=== PATIENT | female | born 1980 | race Caucasian/White ===

== ENCOUNTER 2019-04-02 18:47 | Emergency (ER) | payer MEDICAID ==
--- NOTE | 2019-04-02 19:17 | EDM.PDOC ---
ED HPI GENERAL MEDICAL PROBLEM - General Chief Complaint: ENT Problem Stated Complaint: Q TIP IN R EAR Time Seen by Provider: 04/02/19 19:14 Source of Information: Reports: Patient History Limitations: Reports: No Limitations - History of Present Illness INITIAL COMMENTS - FREE TEXT/NARRATIVE: 38-year-old female who was cleaning out her ears with Q-tips and while cleaning out her right ear canal she got the cotton from the tip of a "Q-tip" lodged in the right ear canal. There is really no pain associated with it. She does report that there is a mild discomfort. She also reports decreased hearing. There is been no bleeding from that ear canal. This occurred approximately 5 to 6PM tonight. She reports she was unable to get the cotton out of the ear herself and she presents here for evaluation. She has had no antecedent symptoms. No nausea. No vomiting. No nasal congestion. No sore throat. No fever. There are no other associated signs or symptoms. There are no other modifying factors. 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: Other (see below) (Nothing) - Related Data Allergies Allergy/AdvReac Type Severity Reaction Status Date / Time bee venom protein (honey bee) Allergy Anaphylactic Verified 04/02/19 18:56 Shock codeine Allergy Vomiting Verified 04/02/19 18:56 metformin Allergy Other Verified 04/02/19 18:56 quetiapine [From Seroquel] Allergy Vomiting Verified 04/02/19 18:56 Home Meds: Home Meds Escitalopram Oxalate 10 mg PO DAILY 04/02/19 [History] Fluticasone Propionate [Flonase] 2 sprays INH DAILY 04/02/19 [History] Gabapentin [Neurontin] 300 mg PO DAILY 04/02/19 [History] Pantoprazole Sodium 40 mg PO DAILY 04/02/19 [History] ondansetron HCL [Ondansetron HCl] 4 mg PO Q6H PRN 04/02/19 [History] Past Medical History Psychiatric History: Reports: OCD, Other (See Below) (Borderline personality disorder) - Past Surgical History GI Surgical History: Reports: Bariatric Procedure (Gastric bypass surgery) Social & Family History - Tobacco Use Smoking Status *Q: Never Smoker - Alcohol Use Alcohol Use History: No - Living Situation & Occupation Living situation: Reports: with Significant Other ED ROS ENT - Review of Systems Review Of Systems: See Below Constitutional: Reports: No Symptoms HEENT: Reports: Ear Pain (Discomfort from foreign body), Other (Foreign body in right ear canal) Respiratory: Reports: No Symptoms Cardiovascular: Reports: No Symptoms Endocrine: Reports: No Symptoms GI/Abdominal: Reports: No Symptoms : Reports: No Symptoms Musculoskeletal: Reports: No Symptoms Skin: Reports: No Symptoms Neurological: Reports: No Symptoms Hematologic/Lymphatic: Reports: No Symptoms Immunologic: Reports: No Symptoms ED EXAM, ENT - Physical Exam Exam: See Below Exam Limited By: No Limitations General Appearance: Alert, WD/WN, No Apparent Distress Eye Exam: Bilateral Eye: EOMI, Normal Inspection Ears: Normal External Exam, Canal Foreign Body (Appears to be cotton lodged in the right ear canal), Other (Left ear canal and tympanic membrane are clear.) Nose: Normal Inspection Mouth/Throat: Normal Inspection Head: Atraumatic, Normocephalic Neck: Normal Inspection, Supple, Non-Tender, Full Range of Motion Respiratory/Chest: No Respiratory Distress, Lungs Clear, Normal Breath Sounds, No Accessory Muscle Use, Chest Non-Tender Cardiovascular: Normal Peripheral Pulses, Regular Rate, Rhythm, No JVD GI/Abdominal: Normal Bowel Sounds, Soft, No Mass Back: Normal Inspection Extremities: Normal Inspection, Normal Range of Motion, Normal Capillary Refill Neurological: Alert, Oriented, CN II-XII Intact, Normal Cognition, No Motor/ Sensory Deficits Skin: Warm, Dry, Intact, Normal Color, No Rash ED ENT PROCEDURES - Foreign Body Removal Consent Obtained: Patient Performing Doctor:: Ruddy Dumont Foreign Body Other Location Comment:: Right ear canal Anesthesia Type: None Findings: There was cotton lodged in the right ear canal. This was atraumatically removed using alligator forceps. The patient tolerated this procedure well. There were no apparent complications. Exam of the patient's right ear canal and tympanic membrane showed a normal right ear canal and a normal right tympanic membrane. Complications: No Course - Vital Signs Last Recorded V/S: Last Vital Signs Temp 36.6 C 04/02/19 19:05 Pulse 76 04/02/19 19:05 Resp 18 04/02/19 19:05 BP 148/100 H 04/02/19 19:05 Pulse Ox 100 04/02/19 19:05 - Re-Assessments/Exams Free Text/Narrative Re-Assessment/Exam: 04/02/19 19:30: I advised the patient not to use Q-tips or place anything in her ear canal in the future. Departure - Departure Time of Disposition: 19:40 Disposition: Home, Self-Care 01 Condition: Good (Improved) Clinical Impression: Foreign body in ear Qualifiers: Encounter type: initial encounter Laterality: right Qualified Code(s): T16.1XXA - Foreign body in right ear, initial encounter - Discharge Information Instructions: Ear Foreign Body, [id number] Referrals: Woody Phoenix PA [Primary Care Provider] - Forms: ED Department Discharge Additional Instructions: The foreign body (cotton) was completely removed from your right ear canal. There did not appear to be any damage to your ear canal or to your eardrum. In the future, you should not place anything in your ear canal. There is an ear wax removal kit that is available at most department stores and drugstores that you could use to clean your ears out as needed. Back to the emergency department for bleeding from the ear or any other concerning sign or symptom. Sepsis Event Note - Focused Exam Vital Signs: Vital Signs Temp Pulse Resp BP Pulse Ox 04/02/19 19:05 36.6 C 76 18 148/100 H 100 Date Exam was Performed: 04/02/19 Time Exam was Performed: 19:29
== END 2019-04-02 19:45 | disposition home or self-care (01) ==
LOC: FB.ED 18:47
DX: T16.1XXA Foreign body in right ear, initial encounter (principal)
CPT/HCPCS: 69200; 99282-25

== ENCOUNTER 2019-05-07 15:40 | Emergency (ER) | payer OTHER, MEDICAID ==
[2019-05-07] MEDS ORDERED: Acetaminophen 500 MG Tab PO ONE (16:28)
[2019-05-07] MEDS ORDERED: Ibuprofen 800 MG Tab PO ONE (16:28)
[2019-05-07] MEDS ORDERED: Ondansetron 4 MG Tab.DIS PO ONE (16:28)
[2019-05-07] MEDS ORDERED: LORazepam 1 MG Tab PO ONE (16:28)
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
[2019-05-07] MEDS ORDERED: Sodium Chloride 0.9% 10 ML Syringe FLUSH PRN (19:48)
[2019-05-07] MEDS ORDERED: Sodium Chloride 0.9% 1,000 ML IV SCH (20:00)
== END 2019-05-07 18:50 | disposition home or self-care (01) ==
LOC: FB.ED 15:40
DX: S33.5XXA Sprain of ligaments of lumbar spine, initial encounter (principal); S13.4XXA Sprain of ligaments of cervical spine, initial encounter; Z88.5 Allergy status to narcotic agent; Z88.8 Allergy status to other drugs, medicaments and biological substances; Z91.030 Bee allergy status; V89.2XXA Person injured in unspecified motor-vehicle accident, traffic, initial encounter
CPT/HCPCS: 72125; 72131; 81025; 99284; A9270

== ENCOUNTER 2020-11-23 20:21 | Emergency (ER) | payer MEDICAID ==
--- NOTE | 2020-11-23 20:43 | EDM.PDOC ---
ED HPI GENERAL MEDICAL PROBLEM - General Stated Complaint: TOOTH INFECTION Time Seen by Provider: 11/23/20 20:25 Source of Information: Reports: Patient History Limitations: Reports: No Limitations - History of Present Illness INITIAL COMMENTS - FREE TEXT/NARRATIVE: pt c/o tooth pain x 2 days and worried she has an abscess , denies fever chills or any other associated sx or concerns. - Related Data Allergies Allergy/AdvReac Type Severity Reaction Status Date / Time bee venom protein (honey bee) Allergy Anaphylactic Verified 05/07/19 17:58 Shock codeine Allergy Vomiting Verified 05/07/19 17:58 metformin Allergy Other Verified 05/07/19 17:58 quetiapine [From Seroquel] Allergy Vomiting Verified 05/07/19 17:58 Home Meds: Home Meds . [Unable to Verify Home Med List] 05/07/19 [History] Past Medical History Respiratory History: Reports: None Genitourinary History: Reports: None CUSTOMER SUPPORT COORDINATOR History: Reports: Polycystic Ovaries Psychiatric History: Reports: OCD, Other (See Below) (Borderline personality disorder) Endocrine/Metabolic History: Reports: Vitamin D Deficiency Hematologic History: Reports: B12 Deficiency, Iron Deficiency - Past Surgical History GI Surgical History: Reports: Bariatric Procedure (Gastric bypass surgery) Social & Family History - Family History Family Medical History: No Pertinent Family History - Caffeine Use Caffeine Use: Reports: None - Living Situation & Occupation Living situation: Reports: with Significant Other ED ROS GENERAL - Review of Systems Review Of Systems: See Below Constitutional: Reports: No Symptoms Respiratory: Reports: No Symptoms Cardiovascular: Reports: No Symptoms GI/Abdominal: Reports: No Symptoms ED EXAM, GENERAL - Physical Exam Exam: See Below Exam Limited By: No Limitations General Appearance: Alert, No Apparent Distress Ears: Normal TMs Nose: Normal Inspection Throat/Mouth: Normal Inspection, Normal Oropharynx, Other (tender over the right lower decaed molars , no papable abscess . ) Head: Atraumatic, Normocephalic, Other (no facial swelling or asymetry . ) Neck: Normal Inspection, Supple Respiratory/Chest: No Respiratory Distress, Lungs Clear Cardiovascular: Normal Peripheral Pulses, Regular Rate, Rhythm GI/Abdominal: Normal Bowel Sounds, Soft Course - Vital Signs Text/Narrative:: pt has dental infection, was given Augmentin and hydrocodone. , she is to follow with her dentist. Departure - Departure Time of Disposition: 20:46 Disposition: Home, Self-Care 01 Clinical Impression: Dental infection - Discharge Information Referrals: Woody Phoenix PA [Primary Care Provider] -
[2020-11-23] MEDS ORDERED: Amoxicillin/Clavulanate K 875-125 MG Tab PO ONE (20:54)
[2020-11-23] MEDS ORDERED: Acetaminophen/HYDROcodone 325-5 MG Tab PO ONE (20:55)
== END 2020-11-23 21:15 | disposition home or self-care (01) ==
LOC: FB.ED 20:21
DX: K04.7 Periapical abscess without sinus (principal); K02.9 Dental caries, unspecified; Z91.030 Bee allergy status; Z88.5 Allergy status to narcotic agent; Z88.8 Allergy status to other drugs, medicaments and biological substances
CPT/HCPCS: 99282; A9270

== ENCOUNTER 2021-12-19 23:44 | Emergency (ER) | payer MEDICAID | END 2021-12-20 00:40 | disposition home or self-care (01) | LOC: FB.ED 23:44 | DX: M79.7 Fibromyalgia (principal); Z91.030 Bee allergy status; Z88.5 Allergy status to narcotic agent; Z88.8 Allergy status to other drugs, medicaments and biological substances; Z79.899 Other long term (current) drug therapy | CPT/HCPCS: 99283 ==

== ENCOUNTER 2022-10-21 22:39 | Emergency (ER) | payer MEDICAID ==
[2022-10-22] MEDS ORDERED: Erythromycin Base 0.5% Ophth Oint 3.5 GM Tube EYELF ONE (00:19)
== END 2022-10-22 00:46 | disposition home or self-care (01) ==
LOC: FB.ED 22:39
DX: H10.32 Unspecified acute conjunctivitis, left eye (principal); K21.9 Gastro-esophageal reflux disease without esophagitis; E66.9 Obesity, unspecified; Z79.899 Other long term (current) drug therapy; Z91.030 Bee allergy status; Z88.5 Allergy status to narcotic agent; Z88.8 Allergy status to other drugs, medicaments and biological substances; Z68.33 Body mass index [BMI] 33.0-33.9, adult
CPT/HCPCS: 99283; A9270

== ENCOUNTER 2023-10-13 22:20 | Emergency (ER) | payer MEDICAID | END 2023-10-13 23:07 | disposition home or self-care (01) | LOC: FB.ED 22:20 | DX: R53.83 Other fatigue (principal); K21.9 Gastro-esophageal reflux disease without esophagitis; E66.9 Obesity, unspecified; Z79.899 Other long term (current) drug therapy; Z91.030 Bee allergy status; Z88.5 Allergy status to narcotic agent; Z88.8 Allergy status to other drugs, medicaments and biological substances; Z68.42 Body mass index [BMI] 45.0-49.9, adult | CPT/HCPCS: 99283 ==